=== PATIENT | female | born 1980 | race Caucasian/White ===

== ENCOUNTER 2018-01-11 16:57 | Emergency (ER) | payer BC ==
[2018-01-11] MEDS ORDERED: Ibuprofen TAB* 600 MG PO ONE (17:15)
--- NOTE | 2018-01-11 17:21 | ED ---
Lower Extremity - HPI Summary HPI Summary: C/o right foot and ankle pain S/P mechanical fall while walking up stairs this am. Pt states she caught the top of her foot on edge of stairs, and it bent down when she fell forward. Also hit left aguayo on edge of next step up. denies pain in left leg. Pain in right foot with weight bearing and ambulation. Denies head injury or any other injury or pain. No anticoag. - History of Current Complaint Chief Complaint: EDExtremityLower Stated Complaint: RT FOOT INJURY Time Seen by Provider: 01/11/18 17:09 Hx Obtained From: Patient Mechanism Of Injury: Fall From A Standing Position Onset of Pain: Immediate Onset/Duration: Hours Severity Initially: Moderate Severity Currently: Mild Pain Intensity: 3 Pain Scale Used: 0-10 Numeric Timing: Constant Location: Is Discrete @ Character Of Pain: Dull, Aching Associated Signs And Symptoms: Positive: Negative Aggravating Factor(s): Ambulation, Weight Bearing Alleviating Factor(s): Rest - Allergies/Home Medications Allergies/Adverse Reactions: Allergies Allergy/AdvReac Type Severity Reaction Status Date / Time codeine AdvReac Nausea And Verified 01/11/18 17:04 Vomiting Home Medications: Home Medications NK [No Home Medications Reported] 01/11/18 [History Confirmed 01/11/18] PMH/Surg Hx/FS Hx/Imm Hx Endocrine/Hematology History: Denies: Hx Anticoagulant Therapy Cardiovascular History: Denies: Hx Cardiac Arrest History: Denies: Hx Dialysis Neurological History: Denies: Hx CVA Infectious Disease History: No Infectious Disease History: Denies: Traveled Outside the [place] in Last 30 Days - Social History Alcohol Use: None Substance Use Type: Reports: None Smoking Status (MU): Never Smoked Tobacco Have You Smoked in the Last Year: No Review of Systems Constitutional: Negative Eyes: Negative ENT: Negative Cardiovascular: Negative Respiratory: Negative Gastrointestinal: Negative Genitourinary: Negative Musculoskeletal: Other Positive: Bruising Neurological: Negative Psychological: Normal All Other Systems Reviewed And Are Negative: Yes Physical Exam - Summary Physical Exam Summary: Plantarflexion and dorsaflexion intact on right foot. No ecchyumosis, erythema, swelling, deformity, extra warmth noted to right foot or ankle. tenderness to palpation on dorsal and medial aspect of mid foot extending into medial ankle. PMS intact distally Triage Information Reviewed: Yes Vital Signs On Initial Exam: Initial Vitals Temp Pulse Resp BP Pulse Ox 99.4 F 68 15 125/65 98 01/11/18 17:01 01/11/18 17:01 01/11/18 17:01 01/11/18 17:01 01/11/18 17:01 Vital Signs Reviewed: Yes Appearance: Positive: Well-Appearing Skin: Positive: Warm Head/Face: Positive: Normal Head/Face Inspection Eyes: Positive: Normal Neck: Positive: Supple Respiratory/Lung Sounds: Positive: Clear to Auscultation Cardiovascular: Positive: Normal Abdomen Description: Positive: Nontender Musculoskeletal: Positive: Normal Neurological: Positive: Normal Psychiatric: Positive: Normal AVPU Assessment: Alert - Kezia Coma Scale Best Eye Response: 4 - Spontaneous Best Motor Response: 6 - Obeys Commands Best Verbal Response: 5 - Oriented Coma Scale Total: 15 Diagnostics - Vital Signs Vital Signs Temp Pulse Resp BP Pulse Ox 01/11/18 17:01 99.4 F 68 15 125/65 98 - Laboratory Lab Statement: Any lab studies that have been ordered have been reviewed, and results considered in the medical decision making process. - Radiology ankle Xray Interpretation: No Acute Changes Radiology Interpretation Completed By: Radiologist foot Xray Interpretation: No Acute Changes Radiology Interpretation Completed By: Radiologist - xray states left ankle, but pt states xray was taken of right foot as requested Lower Extremity Course/Dx - Course Course Of Treatment: C/o right foot and ankle pain S/P mechanical fall while walking up stairs this am. Pt states she caught the top of her foot on edge of stairs, and it bent down when she fell forward. Also hit left aguayo on edge of next step up. denies pain in left leg. Pain in right foot with weight bearing and ambulation. Denies head injury or any other injury or pain. No anticoag. Active Plantarflexion and dorsaflexion intact on right foot. No ecchyumosis, erythema, swelling, deformity, extra warmth noted to right foot or ankle. tenderness to palpation on dorsal and medial aspect of mid foot extending into medial ankle. PMS intact distally. Xrays Ffot and ankle NEG. Ice, ibuprofen for pain and swelling. F/up with orthopedics Dr. Frye if symptoms persist past 5 days - Diagnoses Provider Diagnoses: Right foot sprain Discharge - Sign-Out/Discharge Documenting (check all that apply): Discharge/Admit/Transfer - Discharge Plan Condition: Stable Disposition: HOME Patient Education Materials: Foot Sprain (ED) Referrals: No Primary Care Phys,NOPCP [Primary Care Provider] - Joesph Frye MD [Medical Doctor] - Additional Instructions: Ice 10-15 minutes every hour, ibuprofen for pain and swelling. If foot pain does not improve in 5 days follow-up with orthopedics Dr. Frye. Return to the ED for any new or worsening symptoms - Billing Disposition and Condition Condition: STABLE Disposition: Home
--- NOTE | 2018-01-11 18:40 | RAD ---
Indication: Left foot pain. 3 views of the left foot are reviewed. There is no definite fracture or dislocation identified. No other bone or joint abnormality is noted. IMPRESSION: No fracture of the left foot is noted.
--- NOTE | 2018-01-11 18:41 | RAD ---
Indication: Right ankle pain. 3 views of the right ankle demonstrates ankle mortise intact. No fracture is noted. IMPRESSION: No fracture of the right ankle is noted.
[2018-01-11 19:05] VITALS: BP 132/66
== END 2018-01-11 19:04 | disposition home or self-care (01) ==
LOC: ED 16:57
DX: S93.601A Unspecified sprain of right foot, initial encounter (principal); W10.9XXA Fall (on) (from) unspecified stairs and steps, initial encounter; Y93.01 Activity, walking, marching and hiking; Y92.9 Unspecified place or not applicable; Z88.5 Allergy status to narcotic agent
CPT/HCPCS: 99282; A9270-GY

== ENCOUNTER 2020-09-01 20:57 | Inpatient (IN) ==
[2020-09-01 21:50] LABS: ABS Monocytes 0.7 10^3/ul (0-0.8); ABS Neutrophils 7.7 10^3/ul (1.5-7.7); Eosinophil % 0.4 %; Hematocrit 38 % (35-47); Hemoglobin 12.6 g/dL (12.0-16.0); Lymphocyte % 19.3 %; Mean Corpuscular HGB Conc 33 g/dL (31-36); Mean Corpuscular Hemoglobin 31 pg (27-31); Mean Corpuscular Volume 94 fL (80-97); Mean Platelet Volume 10.4 fL (7.4-10.4); Nucleated Red Blood Cells % 0.1; Platelet Count 165 10^3/uL (150-450); Red Blood Count 4.09 10^6 /uL (3.70-4.87); Red Cell Distribution Width 15 % (10-15); White Blood Count 10.6 10^3/uL (3.5-10.8)
[2020-09-01 22:13] LABS: Urine Benzodiazepine Screen None Detected (None Detect); Urine Opiates Screen None Detected (None Detect)
[2020-09-01] MEDS ORDERED: Dibucaine 1% OINT 28.35 GM TUBE PR PRN (22:27)
[2020-09-01] MEDS ORDERED: Witch Hazel PAD JAR TOPICAL PRN (22:27)
[2020-09-01] MEDS ORDERED: Glycerin ADULT 2.4 gm SUPP PR PRN (22:27)
[2020-09-01] MEDS ORDERED: Oxytocin in LR 20 UNITS/1,000 ML BAG IVPB SCH (23:00)
[2020-09-02 06:25] LABS: ABS Lymphocytes 1.5 10^3/ul (1.0-4.8); ABS Monocytes 0.9 10^3/ul (0-0.8); ABS Neutrophils 9.9 10^3/ul (1.5-7.7); Eosinophil % 0.3 %; Hematocrit 32 % (35-47); Hemoglobin 10.9 g/dL (12.0-16.0); Lymphocyte % 12.3 %; Mean Corpuscular HGB Conc 34 g/dL (31-36); Mean Corpuscular Hemoglobin 30 pg (27-31); Mean Corpuscular Volume 90 fL (80-97); Mean Platelet Volume 10.2 fL (7.4-10.4); Platelet Count 155 10^3/uL (150-450); Red Blood Count 3.58 10^6 /uL (3.70-4.87); Red Cell Distribution Width 15 % (10-15); White Blood Count 12.5 10^3/uL (3.5-10.8)
[2020-09-02 20:17] VITALS: BP 134/74
== END 2020-09-03 00:02 | disposition home or self-care (01) | DRG 560 ==
LOC: MCHOBOUT 20:57 → MCHOB 21:11
PROVIDERS: ADMIT Midwife; ATTEND Midwife

== ENCOUNTER 2022-09-05 14:16 | Inpatient (IN) ==
[2022-09-05 16:19] LABS: ABS Monocytes 0.5 10^3/ul (0-0.8); ABS Neutrophils 4.2 10^3/ul (1.5-7.7); Eosinophil % 0.4 %; Hematocrit 35 % (35-47); Hemoglobin 11.4 g/dL (12.0-16.0); Lymphocyte % 17.9 %; Mean Corpuscular HGB Conc 33 g/dL (31-36); Mean Corpuscular Hemoglobin 28 pg (27-31); Mean Corpuscular Volume 84 fL (80-97); Mean Platelet Volume 11.3 fL (7.4-10.4); Platelet Count 156 10^3/uL (150-450); Red Blood Count 4.15 10^6 /uL (3.70-4.87); Red Cell Distribution Width 14 % (10-15); White Blood Count 5.8 10^3/uL (3.5-10.8)
[2022-09-05 17:02] LABS: Urine Benzodiazepine Screen None Detected (None Detect); Urine Cannabinoids Screen None Detected (None Detect); Urine Opiates Screen None Detected (None Detect)
[2022-09-05] MEDS ORDERED: Oxytocin in LR 20,000 MILLI.UNIT/1,000 ML BAG IV ONE (19:20)
[2022-09-05] MEDS ORDERED: Witch Hazel PAD JAR TOPICAL PRN (20:17)
[2022-09-05] MEDS ORDERED: Dibucaine 1% OINT 28.35 GM TUBE PR PRN (20:17)
[2022-09-05] MEDS ORDERED: Oxytocin in LR 20,000 MILLI.UNIT/1,000 ML BAG IV SCH (20:30)
[2022-09-05] MEDS ORDERED: Lactated Ringers 1000 ml BAG 1,000 ML IV SCH (21:00)
[2022-09-06 08:30] LABS: ABS Lymphocytes 1.3 10^3/ul (1.0-4.8); ABS Monocytes 0.6 10^3/ul (0-0.8); ABS Neutrophils 5.8 10^3/ul (1.5-7.7); Eosinophil % 0.4 %; Hematocrit 27 % (35-47); Hemoglobin 8.8 g/dL (12.0-16.0); Lymphocyte % 16.9 %; Mean Corpuscular HGB Conc 33 g/dL (31-36); Mean Corpuscular Hemoglobin 27 pg (27-31); Mean Corpuscular Volume 83 fL (80-97); Mean Platelet Volume 10.3 fL (7.4-10.4); Platelet Count 140 10^3/uL (150-450); Red Blood Count 3.21 10^6 /uL (3.70-4.87); Red Cell Distribution Width 14 % (10-15); White Blood Count 7.8 10^3/uL (3.5-10.8)
[2022-09-06 20:44] VITALS: BP 124/72
== END 2022-09-06 20:35 | disposition home or self-care (01) | DRG 560 ==
LOC: MCHOBOUT 14:16 → MCHOB 15:24
PROVIDERS: ADMIT Midwife; ATTEND Midwife